=== PATIENT | male | born 1980 | race Caucasian/White ===

== ENCOUNTER 2016-10-03 19:41 | Emergency (ER) | payer OTHER ==
[~2016-10-03] VITALS: Ht 180.3 cm; Wt 74.6 kg
--- NOTE | ~2016-10-03 | DS ---
Unit #: [id number] #: [id number] Patient: JO SANTOS [id number] [address] [address] [id number] I MR#: [id number] NAME: JO SANTOS ROOM: 328 Age: 36 Sex: M Admission Date: 10/03/2016 : 1980 Discharge Date: 10/05/2016 Attending Physician: Tiffany Montes M.D. DISCHARGE SUMMARY REASON FOR ADMISSION Heroin overdose. HISTORY OF PRESENT ILLNESS/HOSPITAL COURSE The patient is a 36-year-old male with a relatively unremarkable past medical history. Apparently he was trying heroin for the first time. He suddenly became unresponsive. Bystanders called EMS. Upon arrival, he was found to have vomiting, and he appeared to be acutely cyanotic. He received Narcan en route and was appropriately treated and subsequently brought to the hospital for further evaluation. While here, he became more alert and oriented. He was placed on telemetry floor. He was observed. Over the past 24 hours there were no acute events. The patient initially had chest x-ray. Did not show any acute process, but he did undergo CT chest without contrast, which raised the possibility of multifocal pneumonia and/or inflammatory process. Therefore, he was treated with IV Zosyn while here. Today the patient is clinically improved. He is alert and oriented x3. He is clinically stable for discharge. I will give him a prescription for Augmentin, as well as Medrol Dosepak at time of discharge. He was extensively counselled on the dangers of drug abuse. He expressed understanding and agreement. He will be discharged home in stable condition. FOLLOWUP Follow up with PCP in 7-10 days, Dr. Becki Dos Santos, at [facility]. FINAL DISCHARGE DIAGNOSES 1. Heroin overdose. 2. Acute hypoxic respiratory failure, now resolved. 3. Aspiration pneumonia likely secondary to overdose. DISCHARGE MEDICATIONS 1. Augmentin 875 mg p.o. b.i.d. x10 days. 2. Medrol Dosepak, take as directed. DISCHARGE CONDITION Stable. DISCHARGE DISPOSITION Home. Unit #: [id number] #: [id number] Patient: JO SANTOS Dictated by... Tiffany Montes M.D. ISN/lucas TD: 10/06/2016 13:31 JOB #: [id number] DISCHARGE SUMMARY Page 1 of 1 X Tiffany Montes MD DISCHARGE SUMMARY
--- NOTE | ~2016-10-03 | HP ---
Unit #: [id number] #: [id number] Patient: JO SANTOS [id number] [address] [place], [place] [address] [id number] I MR#: [id number] NAME: JO SANTOS ROOM: 328 Age: 36 Sex: M Admission Date: 10/03/2016 : 1980 Attending Physician: Tiffany Montes M.D. HISTORY AND PHYSICAL CHIEF COMPLAINT Overdose on heroin. DISCUSSION This is a 36-year-old gentleman who was brought here by EMS. EMS was called by someone. He was at someone's home, found unresponsive and EMS was called. On arrival of EMS, he was found to be vomiting in mouth, cyanotic. He was given intranasally 6 mg Narcan and then he woke up and he was brought to emergency room. He was found to be oxygen saturation 80%. He was placed on oxygen non-rebreather and then he slowly woke up. He was found to be on ABG, hypoxic and he had been admitted overnight for observation for hypoxia, acute hypoxic respiratory failure secondary to heroin overdose. He is complaining of cough and shortness of breath and hurts to deep breathe. He initially admitted with emergency room doctor that he did heroin overdose. He said he don't know, he woke up here. He said he used to be a heavy drinker but not drinking for the last few months. He denies fever and chills. He has been complaining of cough and shortness of breath and hurting with deep breath. PAST MEDICAL HISTORY He denies any past medical history. PAST SURGICAL HISTORY He said he had a fall and some buttock/rectal surgery requiring stitches. SOCIAL HISTORY Smokes two packs daily. He said he used to drink alcohol, half gallon on a daily basis, but not using for three months. FAMILY HISTORY Mother has lupus. Grandmother and brother have hypertension. HOME MEDICATIONS Does not take any medications. ALLERGIES No known drug allergies. REVIEW OF SYSTEMS Negative except History of Present Illness. PHYSICAL EXAMINATION GENERAL: Middle aged man lying in the bed comfortably, currently not in any distress. He is alert, awake, oriented x3, currently on Unit #: [id number] #: [id number] Patient: DANIELLE,JO non-rebreather mask. CURRENT VITAL SIGNS: Temperature 98, heart rate 109, respiratory rate 28, blood pressure 120/79. HEENT: Pupils equal, reactive to light and accommodation. Head is normocephalic, atraumatic. NECK: Supple. No JVD. LUNGS: Bilateral rhonchi positive. HEART: S1, S2. Regular rate and rhythm. ABDOMEN: Soft, nontender, nondistended. Bowel sounds positive. EXTREMITIES: Inspection normal. No cyanosis, no clubbing, no edema. NEURO: No focal neurologic deficit. Cranial nerves II-XII intact. Power 5/5 on both sides. DIAGNOSTIC STUDIES LABORATORY: BNP 57, sodium 135, potassium 3.6, chloride 99, glucose 289, BUN 15, creatinine 1.5. LFT within normal limits. Acetaminophen less than 10, salicylate less than 4, alcohol less than 5. White count 15, hemoglobin 16, hematocrit 50, platelet 282. IMAGING: Chest x-ray normal. ASSESSMENT AND PLAN 1. Acute hypoxic respiratory failure: Continue oxygen to keep saturation more than 90. 2. Heroin overdose, status post Narcan. 3. Leukocytosis. 4. Hyperglycemia: Will give IV fluids, recheck A1c in the morning. 5. GI and DVT prophylaxis: Place the patient on Protonix and Lovenox. 6. Tobacco abuse. Dictated by Chiara Perez TD: 10/04/2016 10:01 JOB #: [id number] HISTORY AND PHYSICAL Page 1 of 1 X X HISTORY AND PHYSICAL
--- NOTE | ~2016-10-03 | EKG ---
PATIENT: JO SANTOS UNIT #: [id number] Ventricular Rate: 103 BPM Atrial Rate: 103 BPM P-R Interval: 136 ms QRS Duration: 106 ms Q-T Interval: 350 ms QTC Calculation(Bezet): 458 ms P [place]: 64 degrees Calculated R [place]: 51 degrees Calculated T [place]: 65 degrees Diagnosis Line: Sinus tachycardia Diagnosis Line: Nonspecific T wave abnormality Diagnosis Line: Abnormal ECG Diagnosis Line: No previous ECGs available Diagnosis Line: Confirmed by ABDIAZIZ MARS MD ([id number]) on 10/06/2016 Diagnosis Line: 10:43:22 PM INTERPRETING MD: JERAD COSTELLO
--- NOTE | ~2016-10-03 | CT57 ---
[facility] A Service of [facility] RADIOLOGY TEXT RESULTS PATIENT: JO SANTOS LOCATION: [facility] 328-01 : [birth year] UNIT #: [id number] AGE: [address]: Tiffany Montes MD SEX: M ORDER DR: [id number] [id number] [facility]. [place], [place] [address] [id number] I MR#: [id number] Acc #: [id number] NAME: JO SANTOS : 1980 SEX: M STUDY DATE/TIME: 10/04/2016 16:00 UNIT: [address] ROOM: [facility] STUDY DESCRIPTION: CT Chest Wo Cont Attending Physician: Tiffany Montes M.D. Ordering Physician: Tiffany Montes M.D. MEDICAL IMAGING REPORT This report is preliminary unless electronic signature is present EXAM CT chest without contrast HISTORY overdose 10/03/2016, bystander started CPR, possible aspiration. TECHNIQUE Axial images performed through the chest without contrast. Multiplanar reconstruction images are reviewed. This CT exam was performed with one or more of the following radiation dose reduction techniques: automatic exposure control, adjustment of mA and/or kV according to patient size, and iterative reconstruction. FINDINGS Mild pulmonary hyperinflation. There is multifocal airspace disease with patchy areas of alveolitis in the upper lungs, but also within the lingular segment as well as some areas of consolidation, inferior lingular segment and both lower lobes. This may represent a combination of acute alveolitis and/or pulmonary edema as well as atelectasis. No effusions. Heart size within normal limits. Trachea and bronchi unremarkable except for mucus within the trachea. Aorta and pulmonary vessels unremarkable on this unenhanced study. There is a small amount of coronary artery calcification. Upper abdomen unremarkable. The thoracic spine and thoracic inlet appear normal. IMPRESSION Multifocal alveolitis with patchy alveolar nodules in the right and left upper lobes as well as some areas of opacity inferior lingular segment in both lower lobes which may represent atelectasis or early infiltrate. A [facility] A Service of [facility] RADIOLOGY TEXT RESULTS PATIENT: JO SANTOS LOCATION: [facility] 328-01 : [birth year] UNIT #: [id number] AGE: [address]: Tiffany Montes MD SEX: M ORDER DR: small amount of mucus noted within the trachea, but no significant bronchial plugging seen. No effusions. Dictated by... Nghia Moore M.D. THIS IS AN ELECTRONICALLY VERIFIED REPORT Nghia Moore M.D. at 10/04/2016 10:03 PM [place] TD: 10/04/2016 18:23 JOB #: [id number] MEDICAL IMAGING REPORT Page 1 of 1 COPY
--- NOTE | ~2016-10-03 | CR72 ---
[facility] A Service of [facility] RADIOLOGY TEXT RESULTS PATIENT: JO SANTOS LOCATION: [facility] 328-01 : [birth year] UNIT #: [id number] AGE: [address]: Tiffany Montes MD SEX: M ORDER DR: [id number] [facility] [address] [place], [place] [address] [id number] I MR#: [id number] Acc #: [id number] NAME: JO SANTOS : 1980 SEX: M STUDY DATE/TIME: 10/03/2016 20:00 [facility] [address] STUDY DESCRIPTION: CR Chest Single View Portable Attending Physician: Rc Unger M.D. Ordering Physician: James Morrell D.O. MEDICAL IMAGING REPORT This report is preliminary unless electronic signature is present EXAM Portable chest. HISTORY Chest pain today after drug overdose and CPR. FINDINGS A single AP portable view of the chest shows both lungs to be clear. The heart is normal in size. The mediastinal contour is normal. No significant bone abnormalities are seen. IMPRESSION Normal portable chest. Dictated by... Emmett Ibanez M.D. THIS IS AN ELECTRONICALLY VERIFIED REPORT Emmett Ibanez M.D. at 10/04/2016 11:19 PM AYNIRA/danny TD: 10/03/2016 22:57 JOB #: [id number] MEDICAL IMAGING REPORT Page 1 of 1 COPY
[2016-10-03 19:59] LABS: ARTERIAL BLD GAS O2 SATURATION 80.9 % (90.0-100.0); ARTERIAL BLOOD GAS CARBOXY HB 6.8 %sat (0.0-9.0); ARTERIAL BLOOD GAS HCO3 24.9 mmol/L; ARTERIAL BLOOD GAS MET HB 0.8 %sat (0.0-2.0); ARTERIAL BLOOD GAS PCO2 45.8 mmHg (35.0-45.0); ARTERIAL BLOOD GAS pH 7.344 (7.350-7.450)
[2016-10-03 20:00] LABS: ARTERIAL BLOOD GAS ALLEN TEST NORMAL; ARTERIAL BLOOD GAS ART SITE LEFT RADIAL; ARTERIAL BLOOD GAS PO2 52.8 mmHg (80.0-100); ARTERIAL DRAW? YES
[2016-10-03 20:01] LABS: ARTERIAL BLOOD GAS DELIVERY NON REBREATHER MASK
[2016-10-03 20:15] LABS: BASOPHIL# 0.1 X10e3 (0-0.3); BASOPHIL% 0.6 % (0-2.5); DIFF IND YES; EOSINOPHIL# 0.3 X10e3 (0-0.7); EOSINOPHIL% 1.6 % (0.0-7.0); HEMOGLOBIN 16.8 gm/dL (13.0-16.0); LYMPHOCYTE# 4.8 X10e3 (1.0-3.5); LYMPHOCYTE% 30.5 % (17.0-45.0); MEAN CORPUSCULAR HEMOGLOBIN 31.9 PG (28-34); MEAN CORPUSCULAR HGB CONC 33.6 g/dL (30-36); MONOCYTE# 0.8 X10e3 (0-1.0); MONOCYTE% 4.9 % (3.0-12.0); NEUTROPHIL# 9.8 X10e3 (1.5-7.1); NEUTROPHIL% 62.4 % (40-75); PLATELET COUNT 282 X10e3 (140-420); RED BLOOD COUNT 5.26 X10e (3.90-5.60); RED CELL DISTRIBUTION WIDTH 12.7 % (11.0-15.5); WHITE BLOOD COUNT 15.6 X10e3 (4.0-10.5)
[2016-10-03 20:21] LABS: PROTHROMBIN TIME (PATIENT) 10.5 SECONDS (10.0-11.7)
[2016-10-03 20:35] LABS: ALKALINE PHOSPHATASE 78 U/L (32-92); ALT (SGPT) 38 U/L (10-40); AST (SGOT) 47 U/L (10-42); BILIRUBIN, DIRECT 0.1 mg/dL (0.0-0.2); BILIRUBIN,INDIRECT 0.4 mg/dL (0.0-0.9); BILIRUBIN,TOTAL 0.5 mg/dL (0.2-2.0); BLOOD UREA NITROGEN 15 mg/dL (9-23); CALCIUM SERUM 8.5 mg/dL (8.4-10.2); CARBON DIOXIDE 24 mmol/L (22-31); CHLORIDE 99 mmol/L (100-111); CREATININE SERUM 1.5 mg/dL (0.6-1.4); GLOM FILT RATE Estimated 58.2 mL/min (>60); GLUCOSE FASTING 289 mg/dL (70-110); POTASSIUM 3.6 mmol/L (3.5-5.1); PROTEIN TOTAL SERUM 7.3 g/dL (6.0-8.3); SALICYLATE <4.0 mg/dL; SODIUM 135 mmol/L (135-145)
[2016-10-03 20:36] LABS: PLATELET ESTIMATE NORMAL (NORMAL); RBC NORMAL YES
[2016-10-03 20:38] LABS: ACETAMINOPHEN <10 ug/mL; ALCOHOL BLOOD <5 mg/dL (0)
[2016-10-04] MEDS ORDERED: NO MEDICATIONS (01:42)
[2016-10-04 05:26] LABS: BASOPHIL% 0.2 % (0-2.5); EOSINOPHIL% 0.1 % (0.0-7.0); HEMATOCRIT 46.7 % (38.0-50.0); HEMOGLOBIN 15.7 gm/dL (13.0-16.0); LYMPHOCYTE# 1.3 X10e3 (1.0-3.5); LYMPHOCYTE% 5.9 % (17.0-45.0); MEAN CELL VOLUME 93.4 FL (83-96); MEAN CORPUSCULAR HEMOGLOBIN 31.4 PG (28-34); MEAN CORPUSCULAR HGB CONC 33.7 g/dL (30-36); MEAN PLATELET VOLUME 7.8 FL (6.5-11.5); MONOCYTE# 0.9 X10e3 (0-1.0); NEUTROPHIL# 19.9 X10e3 (1.5-7.1); NEUTROPHIL% 89.8 % (40-75); PLATELET COUNT 195 X10e3 (140-420); RED CELL DISTRIBUTION WIDTH 12.8 % (11.0-15.5); WHITE BLOOD COUNT 22.2 X10e3 (4.0-10.5)
[2016-10-04 05:27] LABS: DIFF IND NO
[2016-10-04 05:57] LABS: BUN/CREATININE RATIO 17.77; CALCIUM SERUM 8.9 mg/dL (8.4-10.2); CREATININE SERUM 0.9 mg/dL (0.6-1.4); POTASSIUM 4.4 mmol/L (3.5-5.1)
[2016-10-05] MEDS ORDERED: 8 HOUR PAIN RE650 M1 PO (12:16)
[2016-10-05] MEDS ORDERED: AUGMENTIN PO (12:18)
[2016-10-05] MEDS ORDERED: MEDROL (12:18)
== END 2016-10-05 14:04 | disposition home or self-care (01) ==
LOC: CED 19:41 → CEDOF 21:45 → C3A PCU 21:45 → CEDOF 22:10 → CED 22:10 → CEDOF 23:15 → C3A PCU 23:15
PROVIDERS: Emergency Medicine
DX: T40.1X1A Poisoning by heroin, accidental (unintentional), initial encounter (principal); J96.01 Acute respiratory failure with hypoxia; J69.0 Pneumonitis due to inhalation of food and vomit; D72.829 Elevated white blood cell count, unspecified; R73.9 Hyperglycemia, unspecified; F17.210 Nicotine dependence, cigarettes, uncomplicated; Z79.899 Other long term (current) drug therapy
CPT/HCPCS: 36415; 36600; 71010; 71250; 80048; 80076; 82803; 83036; 83880; 85025; 85610; 85730; 93005; 94640; 94760; 96365; 96366; 96367; 96372; 96374; 96375; 96376; 99291; G0378; G0480; J1650; J1956; J2405; J2543; J2930